=== PATIENT | female | born 1945 | race Caucasian/White ===

== ENCOUNTER → 2017-11-13 | Outpatient (CLI) | payer MEDICARE, OTHER ==
[2016-03-27 10:17] VITALS: BP 103/68
[~2017-11-13] MED LIST: ASPIRIN E.C. 8181 MG PO; BENICAR40 MG PO; BENZONATATE200 MG PO; FLUTICASON0.05 MG/AC NS; LEVOTHYROXINE100 MC1 PO; NATURE'S BLEND100 MG PO; QUALITY CHOICE1 T27 PO; SINGULAIR PO; THE MEDICINE S300 M1 PO; TRANSDERM0.33 MG/24 TD; ZYRTEC ALLERGY10 MG PO
== END ==
LOC: RAD 08:20
DX: Z13.820 Encounter for screening for osteoporosis (principal); M85.89 Other specified disorders of bone density and structure, multiple sites; Z00.00 Encounter for general adult medical examination without abnormal findings; Z78.0 Asymptomatic menopausal state; E78.2 Mixed hyperlipidemia; I10 Essential (primary) hypertension; R73.9 Hyperglycemia, unspecified; J44.9 Chronic obstructive pulmonary disease, unspecified; J30.9 Allergic rhinitis, unspecified; Z88.4 Allergy status to anesthetic agent; Z88.8 Allergy status to other drugs, medicaments and biological substances

== ENCOUNTER → 2017-11-13 | Outpatient (CLI) | payer MEDICARE, OTHER ==
[2016-03-27 10:17] VITALS: BP 103/68
== END ==
LOC: MAMMO 08:20 → RAD 08:30 → MAMMO 08:30
DX: Z12.31 Encounter for screening mammogram for malignant neoplasm of breast (principal); M85.89 Other specified disorders of bone density and structure, multiple sites; E78.2 Mixed hyperlipidemia; I10 Essential (primary) hypertension; R73.9 Hyperglycemia, unspecified; J44.9 Chronic obstructive pulmonary disease, unspecified; J30.9 Allergic rhinitis, unspecified; Z88.4 Allergy status to anesthetic agent; Z88.8 Allergy status to other drugs, medicaments and biological substances

== ENCOUNTER → 2018-06-17 | Outpatient (CLI) | payer MEDICARE, OTHER ==
[2016-03-27 10:17] VITALS: BP 103/68
[2018-06-17 09:48] LABS: ALBUMIN 4.6 g/dL (3.5-5.0); CALCIUM 10.3 mg/dL (8.4-10.2); POTASSIUM 4.5 mmol/L (3.6-5.0); TOTAL BILIRUBIN 0.8 mg/dL (0.2-1.3); TOTAL PROTEIN 7.1 g/dL (6.3-8.2)
== END ==
LOC: LAB 09:06
PROVIDERS: Family Medicine
DX: Z00.00 Encounter for general adult medical examination without abnormal findings (principal)

== ENCOUNTER → 2018-09-16 | Day surgery (SDC) | payer MEDICARE, OTHER ==
[2016-03-27 10:17] VITALS: BP 103/68
== END ==
LOC: MSO 08:40
DX: D12.3 Benign neoplasm of transverse colon (principal); D12.5 Benign neoplasm of sigmoid colon; Z90.710 Acquired absence of both cervix and uterus; Z90.49 Acquired absence of other specified parts of digestive tract; I10 Essential (primary) hypertension; J44.9 Chronic obstructive pulmonary disease, unspecified; Z87.891 Personal history of nicotine dependence; Z85.038 Personal history of other malignant neoplasm of large intestine; Z86.010 Personal history of colon polyps; E78.5 Hyperlipidemia, unspecified
CPT/HCPCS: 00811; J2704; J7120

== ENCOUNTER → 2018-12-30 | Outpatient (CLI) | payer MEDICARE, OTHER ==
[2016-03-27 10:17] VITALS: BP 103/68
[2018-12-30 08:33] LABS: CALCIUM 10.4 mg/dL (8.3-10.5); POTASSIUM 4.6 mmol/L (3.5-5.1)
== END ==
LOC: LAB 08:06
PROVIDERS: Family Medicine
DX: R73.9 Hyperglycemia, unspecified (principal)

== ENCOUNTER → 2019-06-23 | Outpatient (CLI) | payer MEDICARE, OTHER ==
[2016-03-27 10:17] VITALS: BP 103/68
[2019-06-23 08:41] LABS: ALBUMIN 4.5 g/dL (3.4-4.8); POTASSIUM 4.6 mmol/L (3.5-5.1)
[2019-06-23 08:46] LABS: TOTAL BILIRUBIN 0.7 mg/dL (0.2-1.2)
== END ==
LOC: LAB 08:20
PROVIDERS: Family Medicine
DX: I10 Essential (primary) hypertension (principal); E11.65 Type 2 diabetes mellitus with hyperglycemia; E78.2 Mixed hyperlipidemia; Z85.038 Personal history of other malignant neoplasm of large intestine

== ENCOUNTER → 2019-12-04 | Outpatient (CLI) | payer MEDICARE, OTHER ==
[2016-03-27 10:17] VITALS: BP 103/68
[2019-12-04 10:07] LABS: ALBUMIN 4.6 g/dL (3.4-4.8)
[2019-12-04 10:11] LABS: TOTAL BILIRUBIN 0.8 mg/dL (0.2-1.2)
[2019-12-04 10:15] LABS: DIRECT BILIRUBIN 0.3 mg/dL (0.0-0.5)
== END ==
LOC: LAB 09:50 → MAMMO 11:30
PROVIDERS: Family Medicine
DX: Z13.820 Encounter for screening for osteoporosis (principal); M81.0 Age-related osteoporosis without current pathological fracture; E78.2 Mixed hyperlipidemia; M85.80 Other specified disorders of bone density and structure, unspecified site

== ENCOUNTER → 2019-12-04 | Outpatient (CLI) | payer MEDICARE, OTHER ==
[2016-03-27 10:17] VITALS: BP 103/68
== END ==
LOC: MAMMO 09:49
DX: Z00.00 Encounter for general adult medical examination without abnormal findings (principal); Z12.31 Encounter for screening mammogram for malignant neoplasm of breast; E78.2 Mixed hyperlipidemia; I10 Essential (primary) hypertension; M85.80 Other specified disorders of bone density and structure, unspecified site; J44.9 Chronic obstructive pulmonary disease, unspecified; J30.9 Allergic rhinitis, unspecified; R73.9 Hyperglycemia, unspecified

== ENCOUNTER → 2020-11-11 | Outpatient (CLI) | payer MEDICARE, OTHER ==
[2016-03-27 10:17] VITALS: BP 103/68
[2020-11-11 09:25] LABS: EOS # 0.4 (0.04-0.40); EOS % 7.5 % (1.0-5.0); HEMATOCRIT 44.2 % (37.0-47.0); HEMOGLOBIN 14.5 g/dL (12.5-16.0); LYMPH# 1.7 (1.50-4.00); MEAN CELL VOLUME 97 fl (78-100); MEAN CORPUSCULAR HEMOGLOBIN 32 pg (27-31); MEAN CORPUSCULAR HGB CONC 33 g/dL (33-37); MEAN PLATELET VOLUME 10.6 fl (7.4-10.4); MONO # 0.3 (0.20-0.80); NEU # 2.8 (1.40-6.50); PLATELET COUNT 202 K/mm3 (130-400); RED BLOOD COUNT 4.54 M/mm3 (4.10-5.30); RED CELL DISTRIBUTION WIDTH 13.6 % (11.5-14.5); WHITE BLOOD COUNT 5.2 K/mm3 (4.8-10.8)
[2020-11-11 10:11] LABS: POTASSIUM 4.7 mmol/L (3.5-5.1)
[2020-11-11 10:12] LABS: ALBUMIN 4.4 g/dL (3.4-4.8)
[2020-11-11 10:14] LABS: TOTAL PROTEIN 6.9 g/dL (6.2-8.1)
[2020-11-11 10:16] LABS: TOTAL BILIRUBIN 0.6 mg/dL (0.2-1.2)
== END ==
LOC: LAB 08:26
PROVIDERS: Family Medicine
DX: E78.2 Mixed hyperlipidemia (principal); E03.9 Hypothyroidism, unspecified; Z85.038 Personal history of other malignant neoplasm of large intestine

== ENCOUNTER → 2022-04-04 | Outpatient (CLI) | payer MEDICARE, OTHER | LOC: RAD 09:51 | DX: K76.0 Fatty (change of) liver, not elsewhere classified (principal); M85.80 Other specified disorders of bone density and structure, unspecified site ==

== ENCOUNTER → 2023-04-04 | Outpatient (CLI) | payer MEDICARE, OTHER | LOC: MAMMO 08:14 | DX: Z12.31 Encounter for screening mammogram for malignant neoplasm of breast (principal); R92.0 Mammographic microcalcification found on diagnostic imaging of breast ==

== ENCOUNTER → 2023-04-09 | Outpatient (CLI) | payer MEDICARE, OTHER | LOC: MAMMO 06:58 | DX: R92.1 Mammographic calcification found on diagnostic imaging of breast (principal); N64.89 Other specified disorders of breast ==

== ENCOUNTER → 2023-12-31 | Outpatient (CLI) | payer MEDICARE, OTHER ==
[2024-02-18 05:58] LABS: ALBUMIN 4.5 g/dL (3.4-4.8); TOTAL PROTEIN 6.7 g/dL (6.2-8.1)
== END ==
LOC: LAB 11:14
PROVIDERS: Family Medicine
DX: E83.52 Hypercalcemia (principal)